=== PATIENT | female | born 1955 | race African-American/Black ===

== ENCOUNTER 2017-06-12 13:05 | Emergency (ER) | payer MEDICARE, MEDICAID ==
[~2017-06-12] VITALS: Ht 152.4 cm; Wt 79.0 kg
[2017-06-12] MEDS ORDERED: ACETAMINOPHEN WITH CODEINE 300/30MG TABLET PO ONE (17:30)
[2017-06-12] MEDS ORDERED: TRAMADOL 50MG TABLET PO ONE (19:45)
[2017-06-12 20:15] VITALS: BP 131/74
== END 2017-06-12 20:45 | disposition home or self-care (01) ==
LOC: ER 15:57
DX: S16.1XXA Strain of muscle, fascia and tendon at neck level, initial encounter (principal); M48.02 Spinal stenosis, cervical region; I10 Essential (primary) hypertension; K21.9 Gastro-esophageal reflux disease without esophagitis; Z88.2 Allergy status to sulfonamides; Z88.6 Allergy status to analgesic agent
CPT/HCPCS: 72040; 72125; 99284